=== PATIENT | female | born 1990 | race Caucasian/White ===

== ENCOUNTER 2025-05-16 06:22 | Day surgery (SDC) | payer BC, SELFPAY ==
[2025-05-16] VITALS (9 sets, daily range): BP systolic 105–121; BP diastolic 55–76; BMI 23.2
[2025-05-16] MEDS: NORMOSOL-R/PLASMALYTE-A 1000 IV (08:55)
[2025-05-16 09:08] LABS: HCG, Urine Qualitative Screen Negative
[2025-05-16] MEDS: TRANSDERM-SCOP 1 PATCH TRANSDERM (09:46)
[2025-05-16] MEDS: DILAUDID 0.25 MG IV ×2 (12:04→12:21)
[2025-05-16] MEDS: ZOFRAN 4 MG IV (12:11)
[2025-05-16] MEDS: ROXICODONE 5 MG PO (13:41)
== END 2025-05-16 14:30 | disposition home or self-care (01) ==
LOC: SDS 06:22
PROVIDERS: ATTENDING PHYSICIAN Otolaryngology
DX: H72.02 Central perforation of tympanic membrane, left ear (principal); H72.93 Unspecified perforation of tympanic membrane, bilateral; H68.023 Chronic Eustachian salpingitis, bilateral; H90.2 Conductive hearing loss, unspecified
CPT/HCPCS: 69631; 81025

== ENCOUNTER 2025-08-17 20:37 | Emergency (ER) | payer BC, SELFPAY ==
[2025-08-17 20:45] VITALS: BP 144/86
[2025-08-17 21:08] LABS: Hematocrit 41.4 % (37.0-47.0); Hemoglobin 13.1 g/dL (12.0-16.0); Mean Corp Hgb Conc. 31.6 g/dL (33.0-37.0); Mean Corpuscular Volume 90.4 fL (81.0-99.0); Nucleated Red Blood Cells % 0 %; Platelet Count 312 10^3/uL (130-400); Red Cell Dist. Width 12.5 % (11.5-14.5)
[2025-08-17 21:19] LABS: APTT 25.2 Sec (23.4-35.0)
[2025-08-17 21:25] VITALS: BMI 23.2
[2025-08-17 21:28] VITALS: BP 120/71
[2025-08-17 21:33] LABS: HCG, Serum Qualitative Screen Negative
[2025-08-17 21:37] LABS: Blood Urea Nitrogen 12 mg/dl (7-17); Calcium 10.1 mg/dl (8.4-10.2); Carbon Dioxide 26 mmol/L (22-30); Chloride 105 mmol/L (98-107); Estimated Creatinine Clearance 86 ml/min; Glucose 106 mg/dl (70-99); Potassium 4.3 mmol/L (3.5-5.1); Sodium 139 mmol/L (135-145); eGFR > 60.00
[2025-08-17 21:41] LABS: Troponin I < 0.012 ng/ml
--- NOTE | 2025-08-17 21:50 | ED.GENMED ---
History of Present Illness
General
Chief Complaint: Chest Pain
Source: patient and family
Exam Limitations: none
Time Seen by Provider: 08/17/25 21:20
Nursing documentation reviewed up to this point in time: agreed with
History of Present Illness
History of Present Illness:
35-year-old female presenting to the emergency department today with multiple concerns. Initial symptoms started 1 week ago with bilateral armpit discomfort and swelling radiating pain to the breast also rating to the left scapular region. Also
developed some chest pain with radiation to the back yesterday as well as left lower quadrant abdominal and pelvic pain intermittent vaginal spotting. Denies any fevers or recent illness. Denies similar symptoms in the past.
Past History
Past History
ED Past Medical History: None
ED Past Surgical History: None
Social History
Tobacco: Non-smoker
Alcohol: None
Personal: Single
Living: with family
Review of Systems
Review of Systems
Allergies reviewed?: Yes
All Other Systems: ROS reviewed and negative except as documented in HPI and ROS
Phy Exam
Physical Exam
Physical Exam:
GENERAL: Alert , in no apparent distress
EYE: pupils equal and reactive
NECK: Supple, no significant adenopathy.
ENT: o/p clr, mmm.
CARDIAC: Regular rate and rhythm .
LUNGS: Clear breath sounds bilaterally, no acute respiratory distress, no wheezes/rales/rhonchi
ABDOMEN: Soft, without focal tenderness, no r/g, no cvat
NEUROLOGICAL: Alert and oriented, no focal neuro deficits
SKIN: Warm and dry, skin intact.
MUSCULOSKELETAL: No edema, well perfused.
PSYCH: Normal and appropriate interaction.
Scores
Heart Score for Chest Pain Patients
STEMI patient?: No
History: Slightly or Non-Suspicious
ECG: Normal
Age: </= 45 years
Risk Factors: No Risk Factors
Troponin: </= Normal Limit
Heart Score for Chest Pain Patients: 0
Heart Score Risk: 2.5% MACE over next 6 weeks
Course
Orders/Labs/Results
Orders:
Orders
08/17/25 20:49
ECG [Electrocardiogram (*1)] Urgent
Reason for Study: Chest Pain
EKG- Treatment ONCE
08/17/25 20:54
Test Result ONCE
08/17/25 20:58
Basic Metabolic Panel Urgent
Complete Blood Count/With Diff Urgent
HCG, Serum Qualitative Screen Urgent
PTT Urgent
Troponin I Urgent
08/17/25 21:46
Urinalysis Reflex To Culture Urgent
Date Specimen was Collected: 08/18/25
Time Specimen was Collected: 01:33
US Pelvis W Transvag Combined Urgent
Reason For Exam: left pelvic pain
08/17/25 22:02
Ketorolac [Toradol] 30 mg IM NOW STA
08/18/25 00:00
CR Chest - 2 Views Urgent
Reason For Exam: cp
08/18/25 01:34
Urine Microscopic Reflex Cult Urgent
Abnormal Lab Results
08/17/25 08/18/25
20:58 01:34
MCHC 31.6 L g/dL
(33.0-37.0)
Glucose 106 H mg/dl
(70-99)
Ur Occult Blood Reflex 3+ A
(Negative)
08/17/25 20:58
08/17/25 20:58
Vital Signs
Initial and Last Documented VS:
Initial Vital Signs
Temp Pulse Resp BP Pulse Ox
98.1 F 117 18 144/86 100
08/17/25 20:45 08/17/25 20:45 08/17/25 20:45 08/17/25 20:45 08/17/25 20:45
Last Documented Vital Signs
Temp Pulse Resp BP Pulse Ox
98.1 F 72 14 115/72 98
08/17/25 20:45 08/18/25 01:39 08/18/25 01:39 08/18/25 01:39 08/18/25 01:39
MDM/Problems Addressed
MDM/Problems Addressed:
35-year-old female presenting with concerns of lymph node swelling to her armpits bilaterally as well as discomfort rating to the left scapula as well as left pelvic discomfort and vaginal bleeding. Here vital signs normal throughout ER stay
troponin negative no evidence of emergent cardiac pathology chest x-ray without acute abnormalities ultrasound normal EKG normal. No evidence of any life-threatening etiology of symptoms at this time advised for close outpatient follow-up. Return
precautions given.
*Pulse Oximetry
SaO2: 100
Oxygen Mode of Delivery: Room air
Patient hypoxic: no (98)
*Critical Care Note
Total Time (30-74mins, 75-104mins- exclusive of procedures): Not Applicable
ED Attending Note
-
Portions of this chart may have been created with voice recognition software.� Occasional wrong word or��sound alike� substitutions may have occurred due to the inherent limitations of voice recognition software.
Discharge Plan
Departure
Patient Disposition: Home (Routine Discharge)
Date of Disposition: 08/18/25
Time of Disposition: 02:04
Patient with high blood pressure during this ER visit?: No
Condition: Good
Covid-19: Not Applicable
Discharge Problem:
Pelvic pain, Axillary lymphadenopathy
Prescriptions:
No Action
drospirenone-ethinyl estradiol [Keren (28)] 1 TAB tablet
1 tab PO DAILY
Women's Multivitamin 18 mg iron-400 mcg-500 mg Tablet
1 tab PO DAILY
Referrals:
UNKNOWN - PT DOES,NOT KNOW [Family Provider]
Activity Restrictions/Additional Instructions:
You came to the emergency department today with concerns of multiple symptoms. Here due to reassuring assessment. Please follow-up very closely this week with your outpatient doctor. Return for any worsening, new or concerning symptoms.
Interventions
Interventions:
*Risk Screen - Suicide Last Done: 08/17/25 20:45
*General Assessment Last Done: 08/17/25 20:45
*Neglect/Abuse Screening Last Done: 08/17/25 20:45
*ED- Fall Risk Assessment Last Done: 08/17/25 21:25
*ED COVID-19 Vaccine History Last Done: 08/17/25 21:25
*ED Influenza Vaccine History Last Done: 08/17/25 21:25
ED- Cardiac Assessment Last Done: 08/17/25 21:25
Discharge Date and Time
Print Language: FRENCH
[2025-08-17 22:00] VITALS: BP 116/70
[2025-08-17] MEDS: TORADOL 30 MG IM (22:25)
[2025-08-17 23:00] VITALS: BP 112/64
[2025-08-18 01:39] VITALS: BP 115/72
[2025-08-18 01:42] LABS: Urine Character Clear (Clear)
[2025-08-18 02:10] VITALS: BP 115/72
[2025-08-18 02:18] LABS: Urine Red Blood Cell 0-2 /HPF (0-2); Urine White Cell 0-2 /HPF (0-5)
== END 2025-08-18 02:31 | disposition home or self-care (01) ==
LOC: EMR 20:37
PROVIDERS: Emergency Medicine; Physician Assistant; EMERGENCY PHYSICIAN Emergency Medicine
DX: R10.22 Pelvic and perineal pain left side (principal); R59.0 Localized enlarged lymph nodes
CPT/HCPCS: 99284; 96372; 71046; 76830; 76856; 80048; 81003; 81015; 84484; 84703; 85025; 85730; 93005

== ENCOUNTER → 2025-09-06 09:46 | Outpatient (REF) | payer BC, SELFPAY | LOC: WDC 09:46 | PROVIDERS: ATTENDING PHYSICIAN Nurse Practitioner Adult Health | DX: N64.4 Mastodynia (principal); M79.621 Pain in right upper arm; M79.622 Pain in left upper arm | CPT/HCPCS: 76642; 77062; 77066 ==